=== PATIENT | female | born 1970 | race Caucasian/White ===

== ENCOUNTER 2018-09-26 07:15 | Emergency (ER) | payer OTHER ==
[~2018-09-26] VITALS: Ht 149.9 cm; Wt 124.5 kg
[2018-09-26] MEDS ORDERED: LIDOCAINE 2% W/EPIN INJ 20ML **PRES FREE As Ordered ONE (08:14)
[2018-09-26] MEDS ORDERED: ADACEL/BOOSTRIX VACCINE (DIPHTH/PERTUSS/ACELL/TETANUS)0.5ML SYR (90715) IM ONE (08:15)
[2018-09-26] MEDS ORDERED: LIDOCAINE 2% W/EPIN INJ 20ML **PRES FREE INJ ONE (08:15)
--- NOTE | 2018-09-26 08:35 | REP ---
Clinical: Laceration. Technique: AP and lateral views of the right knee. Findings: Subcutaneous emphysema and anterior swelling consistent with laceration and injury. No obvious acute fracture or dislocation. No definite effusion. No obvious foreign body. Impression: Evidence for contusion and laceration. No acute fracture or dislocation. No foreign body. Electronically Signed by Mani Vaughan MD 09/26/2018 08:26 A
[2018-09-26] MEDS ORDERED: MOTR200T44 PO (08:53)
[2018-09-26] MEDS ORDERED: ACETAMINOPHEN 325 MG TAB PO ONE (09:00)
[2018-09-26 09:06] VITALS: BP 140/62
== END 2018-09-26 09:12 | disposition home or self-care (01) ==
LOC: M ED 07:15
DX: S81.011A Laceration without foreign body, right knee, initial encounter (principal); W19.XXXA Unspecified fall, initial encounter; Y92.009 Unspecified place in unspecified non-institutional (private) residence as the place of occurrence of the external cause